=== PATIENT | female | born 1975 | race Caucasian/White ===

== ENCOUNTER 2019-07-26 14:53 | Inpatient (IN) ==
[2019-07-26] MEDS ORDERED: Naloxone 0.4 MG/ML INJ IVP PRN (20:09)
[2019-07-26] MEDS ORDERED: *HR* Dextrose 50 % in Water (Syg) 50 ML SYRINGE IVP PRN (20:20)
[2019-07-26] MEDS ORDERED: D5% in Water 1,000 ML IVC PRN (20:20)
[2019-07-26] MEDS ORDERED: Dextrose Gel 15 GM/37.5 ML TUBE PO PRN ×2 (20:20)
[2019-07-26] MEDS ORDERED: *HR* LORazepam 2 MG/ML VIAL IVP PRN (20:22)
[2019-07-26] MEDS ORDERED: Octreotide 400 MCG in 0.9 % Sodium Chloride 100 ML IVC SCH (20:30)
[2019-07-26 20:46] LABS: Basophils # 0.1 K/mcL (0.0-0.2); Basophils % 0.5 %; Eosinophils # 0.2 K/mcL (0.0-0.6); Hematocrit 28.3 % (35.3-44.9); Hemoglobin 10.2 g/dL (11.5-15.4); Immature Granulocytes % 0.5 % (0-4); Lymphocytes # 2.9 K/mcL (0.6-4.6); Lymphocytes % 28.8 %; Mean Corpuscular Hemoglobin 32.3 pg (28.0-33.3); Mean Platelet Volume 12.4 fL (9.4-12.4); Monocytes % 10.4 %; Neutrophils # 5.8 K/mcL (1.6-8.9); Platelet Count 117 K/mcL (140-400); Red Blood Count 3.16 M/mcL (3.82-4.97); Red Cell Distribution Width 14.6 % (11.5-14.5); Segmented Neutrophils % 57.8 %
[2019-07-26 20:52] LABS: INR 1.2; Prothrombin Time 13.2 Seconds (9.4-12.1)
[2019-07-26 20:54] LABS: Mean Corpuscular Volume 89.6 fL (83.0-100.0)
[2019-07-26] MEDS ORDERED: cefTRIAXone 1,000 MG in Water for inj. (sterile) 10 ML IVP SCH (21:00)
[2019-07-26 21:08] LABS: Alanine Aminotransferase 39 Units/L (7-52); Albumin 2.7 g/dL (3.5-5.7); Albumin/Globulin Ratio 1.1 (1.1-2.2); Alkaline Phosphatase 118 Units/L (34-104); Aspartate Amino Transferase 42 Units/L (13-39); BUN/Creatinine Ratio 24 (6-26); Bilirubin,Total 0.6 mg/dL (0.3-1.0); Blood Urea Nitrogen 28 mg/dL (6-20); Carbon Dioxide 19 mEq/L (23-29); Chloride 107 mEq/L (98-107); Globulin 2.4 g/dL (2.4-3.5); Glucose 249 mg/dL (70-105); Magnesium 1.8 mg/dL (1.6-2.6); Osmolality,Calculated 292 (280-300); Potassium 3.1 mEq/L (3.5-5.1); Sodium 134 mEq/L (136-145); Total Protein 5.1 g/dL (6.4-8.9); Troponin I 0.03 ng/mL (< 0.04); eGFR For African Americans > 60 (> 60); eGFR For Non-African Americans 51 (> 60)
[2019-07-26 21:29] LABS: Estimated Average Glucose 163 mg/dl
[2019-07-26] MEDS ORDERED: Sucralfate 1 GM TABLET PO SCH (22:00)
[2019-07-26] MEDS ORDERED: Potassium Chloride Elixir 20 MEQ/15 ML UDC PO ONE (22:04)
[2019-07-26] MEDS ORDERED: 0.9 % Sodium Chloride 500 ML ONE (23:00)
[2019-07-26] MEDS: Pantoprazole 40 MG VIAL IVP SCH (23:03)
[2019-07-27] MEDS: Insulin LISPRO 300 UNITS/3 ML VIAL SQ SCH ×5 (00:47→23:57)
[2019-07-27] MEDS ORDERED: Pantoprazole 40 MG VIAL IVP SCH (06:00)
[2019-07-27] MEDS ORDERED: 0.45 % Sodium Chloride w/KCl 20 MEQ/1,000 ML MLS IVC SCH (07:00)
[2019-07-27 07:08] LABS: Basophils # 0.1 K/mcL (0.0-0.2); Basophils % 0.8 %; Eosinophils # 0.2 K/mcL (0.0-0.6); Eosinophils % 2.5 %; Hemoglobin 10.2 g/dL (11.5-15.4); Immature Granulocytes % 0.4 % (0-4); Lymphocytes # 1.8 K/mcL (0.6-4.6); Lymphocytes % 24.3 %; Mean Corpuscular Hemoglobin 31.6 pg (28.0-33.3); Mean Corpuscular Volume 92.9 fL (83.0-100.0); Mean Platelet Volume 12.2 fL (9.4-12.4); Monocytes # 0.8 K/mcL (0.0-1.3); Monocytes % 10.2 %; Neutrophils # 4.5 K/mcL (1.6-8.9); Platelet Count 104 K/mcL (140-400); Red Blood Count 3.23 M/mcL (3.82-4.97); Red Cell Distribution Width 15.8 % (11.5-14.5); Segmented Neutrophils % 61.8 %; White Blood Count 7.3 K/mcL (4.3-11.1)
[2019-07-27 07:16] LABS: INR 1.1; Prothrombin Time 12.9 Seconds (9.4-12.1)
[2019-07-27 07:26] LABS: Alanine Aminotransferase 46 Units/L (7-52); Albumin 2.9 g/dL (3.5-5.7); Albumin/Globulin Ratio 1.2 (1.1-2.2); Alkaline Phosphatase 122 Units/L (34-104); Aspartate Amino Transferase 64 Units/L (13-39); BUN/Creatinine Ratio 22 (6-26); Bilirubin,Total 0.8 mg/dL (0.3-1.0); Blood Urea Nitrogen 23 mg/dL (6-20); Calcium 8.2 mg/dL (8.6-10.3); Carbon Dioxide 23 mEq/L (23-29); Chloride 108 mEq/L (98-107); Globulin 2.4 g/dL (2.4-3.5); Glucose 133 mg/dL (70-105); Osmolality,Calculated 294 (280-300); Potassium 3.9 mEq/L (3.5-5.1); Sodium 139 mEq/L (136-145); Total Protein 5.3 g/dL (6.4-8.9); eGFR For African Americans > 60 (> 60); eGFR For Non-African Americans 58 (> 60)
[2019-07-27] MEDS: Pantoprazole 40 MG VIAL IVP SCH (08:03)
[2019-07-27] MEDS ORDERED: cefTRIAXone 1,000 MG in Water for inj. (sterile) 10 ML IVP SCH (09:00)
[2019-07-27] MEDS ORDERED: *HR* OxyCODONE/APAP 10/325 TABLET PO PRN (10:48)
[2019-07-27] MEDS ORDERED: Lidocaine -MPF 2% 2 ML VIAL ONE (11:35)
[2019-07-27] MEDS ORDERED: Propofol 500 MG/50 ML INFUS..BTL ONE (11:35)
[2019-07-27] MEDS ORDERED: *HR* Metoprolol 5 MG/5 ML VIAL IVP ONE (12:17)
[2019-07-27] MEDS: Sucralfate 1 GM TABLET PO SCH ×2 (16:55→20:12)
[2019-07-27] MEDS: Ringers Solution, Lactated 1,000 ML IVC SCH (16:57)
[2019-07-28] MEDS: Ringers Solution, Lactated 1,000 ML IVC SCH (05:10)
[2019-07-28] MEDS: Sucralfate 1 GM TABLET PO SCH (05:18)
[2019-07-28 05:44] LABS: Mean Platelet Volume 12.5 fL (9.4-12.4)
[2019-07-28 05:46] LABS: Hematocrit 28.4 % (35.3-44.9); Immature Platelets 7.8 % (1.1-6.1); Mean Corpuscular HGB Conc 35.2 g/dL (31.6-35.5); Mean Corpuscular Hemoglobin 32.1 pg (28.0-33.3); Red Blood Count 3.12 M/mcL (3.82-4.97); Red Cell Distribution Width 15.9 % (11.5-14.5); White Blood Count 5.5 K/mcL (4.3-11.1)
[2019-07-28 05:58] LABS: BUN/Creatinine Ratio 22 (6-26); Blood Urea Nitrogen 18 mg/dL (6-20); Calcium 7.7 mg/dL (8.6-10.3); Carbon Dioxide 24 mEq/L (23-29); Chloride 104 mEq/L (98-107); Glucose 294 mg/dL (70-105); Osmolality,Calculated 289 (280-300); Sodium 133 mEq/L (136-145); eGFR For African Americans > 60 (> 60); eGFR For Non-African Americans > 60 (> 60)
[2019-07-28] MEDS: Insulin LISPRO 300 UNITS/3 ML VIAL SQ SCH (06:00)
[2019-07-28 06:54] VITALS: BP 121/85
== END 2019-07-28 09:25 | disposition home or self-care (01) ==
LOC: 2NENU → 2NNU 19:06 → SUATTDRO 20:44 → 3ANU 07-27 11:56
PROVIDERS: ADMIT Student in an Organized Health Care Education/Training Program; ATTEND Internal Medicine

== ENCOUNTER 2022-01-30 17:11 | Inpatient (IN) ==
[2022-01-30] MEDS ORDERED: *HR* Succinylcholine 200 MG/10 ML VIAL IVP ONE (18:42)
[2022-01-30] MEDS ORDERED: Ondansetron 4 MG/2 ML VIAL ONE (18:42)
[2022-01-30] MEDS ORDERED: *HR* Propofol 200 MG/20 ML VIAL IVP ONE (18:42)
[2022-01-30] MEDS ORDERED: Lidocaine -MPF 2% 2 ML VIAL ONE (18:42)
[2022-01-30] MEDS ORDERED: *HR* FentaNYL (PF) 100 MCG/2 ML VIAL ONE ×2 (18:42→19:42)
[2022-01-30] MEDS ORDERED: Insulin Regular, Human 100 UNIT/ML ONE (18:53)
[2022-01-30] MEDS ORDERED: Naloxone 0.4 MG/ML INJ IVP PRN (19:53)
[2022-01-30] MEDS: cefTRIAXone 1,000 MG in 0.9 % Sodium Chloride 10 ML IVPB SCH (20:43)
[2022-01-30] MEDS: Pantoprazole 40 MG in 0.9 % Sodium Chloride Mini Bag 100 ML IVC SCH (20:44)
[2022-01-30] MEDS: Octreotide 400 MCG in 0.9 % Sodium Chloride 100 ML IVC SCH (20:45)
[2022-01-30] MEDS ORDERED: Dextrose 4 GM Chewable Tablets PO PRN ×2 (21:16)
[2022-01-30] MEDS ORDERED: D5% in Water 1,000 ML IVC PRN (21:16)
[2022-01-30] MEDS ORDERED: *HR* Dextrose 50 % in Water (Syg) 50 ML SYRINGE IVP PRN (21:16)
[2022-01-30] MEDS: Morphine Sulfate 2 MG/ML SYRINGE IVP PRN (23:28)
[2022-01-30] MEDS: Insulin LISPRO 300 UNITS/3 ML VIAL SUBQ SCH (23:37)
[2022-01-31 00:24] LABS: Hematocrit 35.5 % (35.3-44.9); Hemoglobin 12.4 g/dL (11.5-15.4); Mean Corpuscular HGB Conc 34.9 g/dL (31.6-35.5); Mean Corpuscular Volume 94.4 fL (83.0-100.0); Mean Platelet Volume 13.4 fL (9.4-12.4); Platelet Count 99 K/mcL (140-400); Red Blood Count 3.76 M/mcL (3.82-4.97); Red Cell Distribution Width 14.2 % (11.5-14.5); White Blood Count 15.7 K/mcL (4.3-11.1)
[2022-01-31 00:25] LABS: Basophils # 0.1 K/mcL (0.0-0.2); Basophils % 0.4 %; Lymphocytes # 1.8 K/mcL (0.6-4.6); Lymphocytes % 11.3 %; Monocytes # 0.3 K/mcL (0.0-1.3); Neutrophils # 13.4 K/mcL (1.6-8.9); Platelet Estimate Decreased (Normal); Segmented Neutrophils % 85.6 %
[2022-01-31] MEDS: Pantoprazole 40 MG in 0.9 % Sodium Chloride Mini Bag 100 ML IVC SCH ×6 (01:02→21:42)
[2022-01-31] MEDS: Octreotide 400 MCG in 0.9 % Sodium Chloride 100 ML IVC SCH ×3 (07:39→21:43)
[2022-01-31] MEDS: cefTRIAXone 1,000 MG in 0.9 % Sodium Chloride 10 ML IVPB SCH (07:40)
[2022-01-31] MEDS: Insulin LISPRO 300 UNITS/3 ML VIAL SUBQ SCH ×5 (07:41→21:40)
[2022-01-31] MEDS: Morphine Sulfate 2 MG/ML SYRINGE IVP PRN ×3 (07:44→23:07)
[2022-01-31] MEDS: Ondansetron 4 MG/2 ML VIAL IVP PRN (15:00)
[2022-01-31] MEDS: Insulin DETEMIR 100 UNIT/ML X5UNITS SUBQ SCH (21:40)
[2022-02-01] MEDS: Pantoprazole 40 MG in 0.9 % Sodium Chloride Mini Bag 100 ML IVC SCH ×4 (03:01→21:52)
[2022-02-01] MEDS: Octreotide 400 MCG in 0.9 % Sodium Chloride 100 ML IVC SCH ×2 (03:11→14:03)
[2022-02-01] MEDS: Morphine Sulfate 2 MG/ML SYRINGE IVP PRN ×3 (03:34→22:00)
[2022-02-01 06:10] LABS: Basophils # 0.1 K/mcL (0.0-0.2); Basophils % 0.5 %; Eosinophils # 0.1 K/mcL (0.0-0.6); Eosinophils % 0.8 %; Hematocrit 24.8 % (35.3-44.9); Immature Granulocytes % 0.5 % (0-4); Lymphocytes # 2.2 K/mcL (0.6-4.6); Lymphocytes % 20.5 %; Mean Corpuscular HGB Conc 34.3 g/dL (31.6-35.5); Mean Corpuscular Hemoglobin 32.6 pg (28.0-33.3); Mean Platelet Volume 12.5 fL (9.4-12.4); Monocytes # 0.8 K/mcL (0.0-1.3); Monocytes % 7.8 %; Neutrophils # 7.4 K/mcL (1.6-8.9); Red Blood Count 2.61 M/mcL (3.82-4.97); Red Cell Distribution Width 14.6 % (11.5-14.5); Segmented Neutrophils % 69.9 %; White Blood Count 10.6 K/mcL (4.3-11.1)
[2022-02-01 06:11] LABS: Hemoglobin 8.5 g/dL (11.5-15.4); Platelet Count 74 K/mcL (140-400)
[2022-02-01 06:12] LABS: INR 1.2; Prothrombin Time 13.9 Seconds (9.4-12.1)
[2022-02-01 08:03] LABS: BUN/Creatinine Ratio 38 (6-26); Blood Urea Nitrogen 25 mg/dL (6-20); Calcium 7.7 mg/dL (8.6-10.3); Carbon Dioxide 24 mEq/L (23-29); Chloride 106 mEq/L (98-107); Glucose 203 mg/dL (70-105); Osmolality,Calculated 292 (280-300); Potassium 3.9 mEq/L (3.5-5.1); Sodium 136 mEq/L (136-145); eGFR For African Americans > 60 (> 60); eGFR For Non-African Americans > 60 (> 60)
[2022-02-01] MEDS: cefTRIAXone 1,000 MG in 0.9 % Sodium Chloride 10 ML IVPB SCH (08:21)
[2022-02-01] MEDS: Insulin LISPRO 300 UNITS/3 ML VIAL SUBQ SCH ×4 (08:22→21:32)
[2022-02-01] MEDS: Divalproex (12 HR) 250 MG TABLET PO SCH (20:42)
[2022-02-01] MEDS: Insulin DETEMIR 100 UNIT/ML X5UNITS SUBQ SCH (20:43)
[2022-02-02] MEDS: Octreotide 400 MCG in 0.9 % Sodium Chloride 100 ML IVC SCH ×3 (02:07→21:44)
[2022-02-02] MEDS: Pantoprazole 40 MG in 0.9 % Sodium Chloride Mini Bag 100 ML IVC SCH ×4 (02:59→19:02)
[2022-02-02 06:10] LABS: Hemoglobin 8.1 g/dL (11.5-15.4); Mean Corpuscular Hemoglobin 33.1 pg (28.0-33.3); Red Blood Count 2.45 M/mcL (3.82-4.97)
[2022-02-02 06:11] LABS: Basophils % 0.5 %; Eosinophils # 0.1 K/mcL (0.0-0.6); Eosinophils % 1.5 %; Hematocrit 23.3 % (35.3-44.9); Immature Granulocytes % 0.3 % (0-4); Immature Platelets 8.2 % (1.1-6.1); Lymphocytes # 1.4 K/mcL (0.6-4.6); Lymphocytes % 23.1 %; Mean Corpuscular HGB Conc 34.8 g/dL (31.6-35.5); Mean Corpuscular Volume 95.1 fL (83.0-100.0); Mean Platelet Volume 12.7 fL (9.4-12.4); Monocytes # 0.6 K/mcL (0.0-1.3); Monocytes % 9.3 %; Nucleated Red Blood Cells 0.3 /100 WBC (0); Red Cell Distribution Width 14.5 % (11.5-14.5); Segmented Neutrophils % 65.3 %; White Blood Count 5.9 K/mcL (4.3-11.1)
[2022-02-02 06:12] LABS: Neutrophils # 3.9 K/mcL (1.6-8.9); Platelet Count 61 K/mcL (140-400)
[2022-02-02 06:31] LABS: BUN/Creatinine Ratio 25 (6-26); Blood Urea Nitrogen 16 mg/dL (6-20); Calcium 7.6 mg/dL (8.6-10.3); Carbon Dioxide 25 mEq/L (23-29); Chloride 106 mEq/L (98-107); Glucose 248 mg/dL (70-105); Osmolality,Calculated 289 (280-300); Potassium 3.8 mEq/L (3.5-5.1); Sodium 135 mEq/L (136-145); eGFR For African Americans > 60 (> 60); eGFR For Non-African Americans > 60 (> 60)
[2022-02-02 07:18] LABS: Estimated Average Glucose 186 mg/dl; Hemoglobin A1C 8.1 %
[2022-02-02] MEDS: cefTRIAXone 1,000 MG in 0.9 % Sodium Chloride 10 ML IVPB SCH (08:02)
[2022-02-02] MEDS: Divalproex (12 HR) 250 MG TABLET PO SCH ×2 (08:03→20:28)
[2022-02-02] MEDS: Insulin LISPRO 300 UNITS/3 ML VIAL SUBQ SCH ×4 (08:04→20:43)
[2022-02-02] MEDS: Morphine Sulfate 2 MG/ML SYRINGE IVP PRN (09:40)
[2022-02-02] MEDS: Loratadine 10 MG TABLET PO SCH (17:03)
[2022-02-02] MEDS: Ondansetron 4 MG/2 ML VIAL IVP PRN (20:28)
[2022-02-02] MEDS: *HR* OxyCODONE Immed Rel 5 MG TABLET PO PRN (20:40)
[2022-02-02] MEDS: Insulin DETEMIR 100 UNIT/ML X5UNITS SUBQ SCH (20:42)
[2022-02-03] MEDS: Pantoprazole 40 MG in 0.9 % Sodium Chloride Mini Bag 100 ML IVC SCH ×3 (00:44→06:06)
[2022-02-03 02:57] LABS: Basophils % 0.4 %; Red Cell Distribution Width 14.7 % (11.5-14.5)
[2022-02-03 02:59] LABS: Eosinophils # 0.2 K/mcL (0.0-0.6); Eosinophils % 3.2 %; Hematocrit 26.6 % (35.3-44.9); Hemoglobin 9.2 g/dL (11.5-15.4); Immature Granulocytes % 0.7 % (0-4); Immature Platelets 11.9 % (1.1-6.1); Lymphocytes # 1.2 K/mcL (0.6-4.6); Mean Corpuscular HGB Conc 34.6 g/dL (31.6-35.5); Mean Corpuscular Hemoglobin 33.7 pg (28.0-33.3); Mean Corpuscular Volume 97.4 fL (83.0-100.0); Mean Platelet Volume 12.8 fL (9.4-12.4); Monocytes # 0.5 K/mcL (0.0-1.3); Monocytes % 9.3 %; Neutrophils # 3.4 K/mcL (1.6-8.9); Red Blood Count 2.73 M/mcL (3.82-4.97); Segmented Neutrophils % 63.4 %; White Blood Count 5.4 K/mcL (4.3-11.1)
[2022-02-03 03:05] LABS: Platelet Count 74 K/mcL (140-400)
[2022-02-03 03:11] LABS: Albumin 2.9 g/dL (3.5-5.7); Albumin/Globulin Ratio 1.2 (1.1-2.2); BUN/Creatinine Ratio 23 (6-26); Bilirubin,Direct 0.3 mg/dL (0.0-0.2); Bilirubin,Indirect 0.5 mg/dL (0.0-1.0); Bilirubin,Total 0.8 mg/dL (0.3-1.0); Blood Urea Nitrogen 13 mg/dL (6-20); Calcium 7.8 mg/dL (8.6-10.3); Carbon Dioxide 25 mEq/L (23-29); Chloride 107 mEq/L (98-107); Globulin 2.5 g/dL (2.4-3.5); Glucose 175 mg/dL (70-105); Osmolality,Calculated 288 (280-300); Potassium 4.1 mEq/L (3.5-5.1); Sodium 137 mEq/L (136-145); Total Protein 5.4 g/dL (6.4-8.9); eGFR For African Americans > 60 (> 60); eGFR For Non-African Americans > 60 (> 60)
[2022-02-03] MEDS: *HR* OxyCODONE Immed Rel 5 MG TABLET PO PRN (06:07)
[2022-02-03] MEDS: Octreotide 400 MCG in 0.9 % Sodium Chloride 100 ML IVC SCH (06:07)
[2022-02-03 07:22] VITALS: BP 143/84; PULSE 79; TEMP 98.2; O2SAT 99
[2022-02-03] MEDS: Insulin LISPRO 300 UNITS/3 ML VIAL SUBQ SCH (07:33)
[2022-02-03] MEDS: Loratadine 10 MG TABLET PO SCH (09:37)
[2022-02-03] MEDS: Divalproex (12 HR) 250 MG TABLET PO SCH (09:37)
[2022-02-03] MEDS: cefTRIAXone 1,000 MG in 0.9 % Sodium Chloride 10 ML IVPB SCH (09:38)
== END 2022-02-03 11:44 | disposition home or self-care (01) | DRG 242 ==
LOC: ICNU → SUATTDRO 19:59 → 3ANU 01-31 16:13
PROVIDERS: ADMIT Student in an Organized Health Care Education/Training Program; ATTEND Family Medicine

== ENCOUNTER 2022-04-28 21:23 | Inpatient (IN) ==
[2022-04-28 22:09] LABS: Hemoglobin 12.7 g/dL (11.5-15.4); Segmented Neutrophils % 60.9 %
[2022-04-28 22:11] LABS: Basophils # 0.1 K/mcL (0.0-0.2); Basophils % 1.2 %; Eosinophils # 0.1 K/mcL (0.0-0.6); Eosinophils % 1.8 %; Hematocrit 39.3 % (35.3-44.9); Immature Granulocytes % 0.3 % (0-4); Immature Platelets 9.6 % (1.1-6.1); Lymphocytes # 1.4 K/mcL (0.6-4.6); Lymphocytes % 21.6 %; Mean Corpuscular HGB Conc 32.3 g/dL (31.6-35.5); Mean Corpuscular Hemoglobin 26.5 pg (28.0-33.3); Mean Corpuscular Volume 81.9 fL (83.0-100.0); Monocytes # 0.9 K/mcL (0.0-1.3); Monocytes % 14.2 %; Platelet Count 153 K/mcL (140-400); Red Cell Distribution Width 24.9 % (11.5-14.5); White Blood Count 6.6 K/mcL (4.3-11.1)
[2022-04-28 22:34] LABS: Albumin 2.8 g/dL (3.5-5.7); Albumin/Globulin Ratio 0.6 (1.1-2.2); Bilirubin,Direct 0.9 mg/dL (0.0-0.2); Bilirubin,Indirect 2.2 mg/dL (0.0-1.0); Bilirubin,Total 3.1 mg/dL (0.3-1.0); Calcium 8.5 mg/dL (8.6-10.3); Globulin 4.5 g/dL (2.4-3.5); Potassium 3.9 mEq/L (3.5-5.1); Total Protein 7.3 g/dL (6.4-8.9)
[2022-04-28 22:51] LABS: Anisocytosis 2+ (Not Present); Platelet Estimate Normal (Normal)
[2022-04-29 01:23] LABS: Bacteria,Urine Few per hpf (None-Few); Bilirubin,Urine Small (Negative); Blood,Urine Negative (Negative); Budding Yeast,Urine Many per hpf (None Seen); Clarity,Urine Ex.Turbid (Clear); Color,Urine Orange (Yellow); Glucose,Urine (UA) >=1000 mg/dL (Normal); Ketones,Urine Trace mg/dL (Negative); Leukocyte Esterase,Urine Trace (Negative); Mucus,Urine Many per lpf (None-Few); Nitrite,Urine Negative (Negative); Protein,Urine 70 mg/dL (Neg-Trace); RBC,Urine TNTC per hpf (0-3); Specific Gravity,Urine > 1.030 (1.010-1.025); Squamous Epithelial Cell,Urine Many per hpf (None-Few); WBC,Urine 50-100 per hpf (0-3)
[2022-04-29] MEDS ORDERED: *HR* HYDROmorphone (PF) 1 MG/ML SYRINGE IVP ONE (03:21)
[2022-04-29] MEDS ORDERED: Iopamidol - 370 500 ML MLS IVP ONE (03:22)
[2022-04-29] MEDS ORDERED: Insulin Human Regular 5 UNIT in 0.9 % Sodium Chloride 10 ML IV ONE (03:26)
[2022-04-29] MEDS ORDERED: 0.9 % Sodium Chloride 1,000 ML IVC ONE (03:27)
[2022-04-29 05:22] LABS: VBG HCO3 22 mEq/L (21-27); VBG PCO2 40 mmHg (41-51); VBG PH 7.35 pH Units (7.32-7.42); VBG PO2 28 mmHg (25-50)
[2022-04-29] MEDS ORDERED: *HR* Heparin 5,000 UNIT/ML VIAL IVP ONE (05:50)
[2022-04-29] MEDS ORDERED: *HR* Heparin 5,000 UNIT/ML VIAL IVP PRN ×2 (05:50)
[2022-04-29] MEDS ORDERED: Heparin 25,000UNIT/250ML 1/2NS 25,000 UNIT/250 ML IV.SOLN IVC SCH (06:00)
[2022-04-29] MEDS ORDERED: Naloxone 0.4 MG/ML INJ IVP PRN (06:36)
[2022-04-29] MEDS ORDERED: D5% in Water 1,000 ML IVC PRN (06:53)
[2022-04-29] MEDS ORDERED: Dextrose Gel 15 GM/37.5 ML TUBE PO PRN ×2 (06:53)
[2022-04-29] MEDS ORDERED: *HR* Dextrose 50 % in Water (Syg) 50 ML SYRINGE IVP PRN (06:53)
[2022-04-29] MEDS ORDERED: Octreotide 400 MCG in 0.9 % Sodium Chloride 100 ML IVC SCH (07:15)
[2022-04-29] MEDS: Pantoprazole 40 MG VIAL IVP SCH ×2 (07:36→18:02)
[2022-04-29] MEDS: cefTRIAXone 1,000 MG in Water for inj. (sterile) 10 ML IVP SCH (07:36)
[2022-04-29 08:09] LABS: Mean Corpuscular Volume 82.1 fL (83.0-100.0)
[2022-04-29 08:10] LABS: Hematocrit 37.6 % (35.3-44.9); Hemoglobin 12.4 g/dL (11.5-15.4); Immature Platelets 8.3 % (1.1-6.1); Mean Corpuscular Hemoglobin 27.1 pg (28.0-33.3); Platelet Count 164 K/mcL (140-400); Red Blood Count 4.58 M/mcL (3.82-4.97); Red Cell Distribution Width 24.5 % (11.5-14.5); White Blood Count 7.8 K/mcL (4.3-11.1)
[2022-04-29 08:22] LABS: Heparin anti-factor XA UFH 0.73 IU/mL (0.30-0.70); INR 1.5; Prothrombin Time 16.8 Seconds (9.4-12.1)
[2022-04-29 08:27] LABS: Albumin 2.7 g/dL (3.5-5.7)
[2022-04-29 08:47] LABS: Acetaminophen < 10 mcg/mL (10-20)
[2022-04-29] MEDS: Insulin LISPRO 300 UNITS/3 ML VIAL SUBQ SCH ×4 (08:57→22:28)
[2022-04-29] MEDS: Furosemide 40 MG TABLET PO SCH (11:49)
[2022-04-29 11:58] LABS: Albumin 2.6 g/dL (3.5-5.7); Albumin/Globulin Ratio 0.6 (1.1-2.2); Bilirubin,Direct 0.9 mg/dL (0.0-0.2); Bilirubin,Indirect 1.8 mg/dL (0.0-1.0); Bilirubin,Total 2.7 mg/dL (0.3-1.0); Globulin 4.3 g/dL (2.4-3.5); Total Protein 6.9 g/dL (6.4-8.9)
[2022-04-29 19:05] LABS: Heparin anti-factor XA UFH < 0.04 IU/mL (0.30-0.70); INR 1.3; Prothrombin Time 14.7 Seconds (9.4-12.1)
[2022-04-29 19:08] LABS: Activated Partial Thrombo Time 32.4 Seconds (26.0-36.0)
[2022-04-30 03:18] LABS: Mean Corpuscular HGB Conc 32.4 g/dL (31.6-35.5); Mean Corpuscular Hemoglobin 26.6 pg (28.0-33.3); Red Blood Count 4.14 M/mcL (3.82-4.97); Segmented Neutrophils % 59.1 %
[2022-04-30 03:20] LABS: Basophils # 0.1 K/mcL (0.0-0.2); Eosinophils # 0.2 K/mcL (0.0-0.6); Eosinophils % 2.6 %; Hematocrit 33.9 % (35.3-44.9); Immature Granulocytes % 0.3 % (0-4); Immature Platelets 8.2 % (1.1-6.1); Lymphocytes # 1.3 K/mcL (0.6-4.6); Mean Corpuscular Volume 81.9 fL (83.0-100.0); Neutrophils # 3.7 K/mcL (1.6-8.9); Platelet Count 137 K/mcL (140-400); Red Cell Distribution Width 24.7 % (11.5-14.5); White Blood Count 6.2 K/mcL (4.3-11.1)
[2022-04-30] MEDS: Heparin 25,000UNIT/250ML 1/2NS 25,000 UNIT/250 ML IV.SOLN IVC SCH (03:24)
[2022-04-30 03:35] LABS: Calcium 7.9 mg/dL (8.6-10.3); Potassium 4.1 mEq/L (3.5-5.1)
[2022-04-30 04:09] LABS: Anisocytosis 2+ (Not Present); Hypochromasia Present (Not Present)
[2022-04-30 04:10] LABS: Platelet Estimate Slight Decrease (Normal); Target Cells 1+ (Not Present)
[2022-04-30] MEDS: cefTRIAXone 1,000 MG in Water for inj. (sterile) 10 ML IVP SCH (06:00)
[2022-04-30] MEDS: Pantoprazole 40 MG VIAL IVP SCH ×2 (06:01→17:37)
[2022-04-30] MEDS: Insulin LISPRO 300 UNITS/3 ML VIAL SUBQ SCH ×4 (09:40→21:22)
[2022-04-30] MEDS: Furosemide 40 MG TABLET PO SCH (09:40)
[2022-04-30] MEDS: *HR* HYDROcodone/Acet 5/325 mg TABLET PO PRN ×2 (13:52→21:33)
[2022-04-30] MEDS ORDERED: Albumin 25% 25gram/100mL 25 GM/100 ML IV.SOLN IVPB ONE (16:43)
[2022-04-30 17:55] LABS: RBC,Peritoneal Fluid < 2000 RBC/mcL
[2022-04-30 18:06] LABS: Glucose,Peritoneal Fluid 290 mg/dL (No Ref Range); LDH,Peritoneal Fluid 33 Units/L (No Ref Range); Total Protein,Peritoneal Fluid < 2.0 g/dL
[2022-04-30 18:48] LABS: Appearance of Peritoneal Fl HAZY (Clear)
[2022-04-30 19:02] LABS: Basophils,Peritoneal Fluid 0 %; Eosinophils,Peritoneal Fluid 0 %
[2022-05-01] MEDS: Heparin 25,000UNIT/250ML 1/2NS 25,000 UNIT/250 ML IV.SOLN IVC SCH ×2 (02:39→18:56)
[2022-05-01 03:46] LABS: Basophils % 0.6 %; Eosinophils # 0.1 K/mcL (0.0-0.6); Eosinophils % 2.6 %; Hematocrit 30.4 % (35.3-44.9); Hemoglobin 9.9 g/dL (11.5-15.4); Immature Granulocytes % 0.2 % (0-4); Immature Platelets 6.9 % (1.1-6.1); Lymphocytes # 1.1 K/mcL (0.6-4.6); Lymphocytes % 21.2 %; Mean Corpuscular HGB Conc 32.6 g/dL (31.6-35.5); Mean Corpuscular Hemoglobin 27.2 pg (28.0-33.3); Mean Corpuscular Volume 83.5 fL (83.0-100.0); Monocytes # 0.6 K/mcL (0.0-1.3); Monocytes % 12.4 %; Neutrophils # 3.2 K/mcL (1.6-8.9); Red Blood Count 3.64 M/mcL (3.82-4.97); Red Cell Distribution Width 24.2 % (11.5-14.5); White Blood Count 5.1 K/mcL (4.3-11.1)
[2022-05-01 04:03] LABS: Calcium 7.6 mg/dL (8.6-10.3); Potassium 3.6 mEq/L (3.5-5.1)
[2022-05-01 04:04] LABS: Platelet Count 97 K/mcL (140-400); Platelet Estimate Slight Decrease (Normal)
[2022-05-01 04:05] LABS: Anisocytosis 2+ (Not Present); Microcytosis Present (Not Present); Poikilocytosis 1+ (Not Present); Target Cells 1+ (Not Present)
[2022-05-01] MEDS: Pantoprazole 40 MG VIAL IVP SCH ×2 (05:43→16:52)
[2022-05-01] MEDS: cefTRIAXone 1,000 MG in Water for inj. (sterile) 10 ML IVP SCH (05:47)
[2022-05-01] MEDS: *HR* HYDROcodone/Acet 5/325 mg TABLET PO PRN ×3 (05:56→23:06)
[2022-05-01] MEDS: Insulin LISPRO 300 UNITS/3 ML VIAL SUBQ SCH ×4 (08:12→23:07)
[2022-05-01] MEDS: Furosemide 20 MG/2 ML VIAL IVP SCH (10:30)
[2022-05-02] MEDS: Pantoprazole 40 MG VIAL IVP SCH (05:07)
[2022-05-02] MEDS: cefTRIAXone 1,000 MG in Water for inj. (sterile) 10 ML IVP SCH (05:41)
[2022-05-02] MEDS: *HR* HYDROcodone/Acet 5/325 mg TABLET PO PRN ×2 (05:42→12:46)
[2022-05-02 05:52] LABS: Basophils % 0.7 %; Immature Granulocytes % 0.2 % (0-4); Red Blood Count 3.71 M/mcL (3.82-4.97); Red Cell Distribution Width 23.9 % (11.5-14.5)
[2022-05-02 05:54] LABS: Eosinophils # 0.1 K/mcL (0.0-0.6); Eosinophils % 2.3 %; Hematocrit 29.9 % (35.3-44.9); Hemoglobin 10.2 g/dL (11.5-15.4); Lymphocytes # 1.4 K/mcL (0.6-4.6); Lymphocytes % 31.6 %; Mean Corpuscular HGB Conc 34.1 g/dL (31.6-35.5); Mean Corpuscular Hemoglobin 27.5 pg (28.0-33.3); Mean Corpuscular Volume 80.6 fL (83.0-100.0); Monocytes # 0.6 K/mcL (0.0-1.3); Monocytes % 14.1 %; Neutrophils # 2.2 K/mcL (1.6-8.9); Platelet Count 97 K/mcL (140-400); Segmented Neutrophils % 51.1 %; White Blood Count 4.3 K/mcL (4.3-11.1)
[2022-05-02 05:58] LABS: Heparin anti-factor XA UFH 0.56 IU/mL (0.30-0.70); INR 1.5; Prothrombin Time 16.6 Seconds (9.4-12.1)
[2022-05-02 06:29] LABS: BUN/Creatinine Ratio 27 (6-26); Blood Urea Nitrogen 22 mg/dL (6-20); Calcium 7.6 mg/dL (8.6-10.3); Carbon Dioxide 23 mEq/L (23-29); Chloride 104 mEq/L (98-107); Glucose 211 mg/dL (70-105); Osmolality,Calculated 288 (280-300); Potassium 3.3 mEq/L (3.5-5.1); Sodium 134 mEq/L (136-145)
[2022-05-02 06:45] LABS: Anisocytosis 3+ (Not Present); Hypochromasia Present (Not Present)
[2022-05-02 06:46] LABS: Platelet Estimate Decreased (Normal); Target Cells 1+ (Not Present)
[2022-05-02] MEDS: Insulin LISPRO 300 UNITS/3 ML VIAL SUBQ SCH ×4 (08:34→21:19)
[2022-05-02] MEDS: Furosemide 20 MG/2 ML VIAL IVP SCH (08:35)
[2022-05-02 13:15] LABS: Heparin anti-factor XA UFH < 0.04 IU/mL (0.30-0.70)
[2022-05-02 13:17] LABS: Activated Partial Thrombo Time 33.4 Seconds (26.0-36.0)
[2022-05-02] MEDS ORDERED: *HR* OxyCODONE Immed Rel 5 MG TABLET PO PRN (15:18)
[2022-05-02 17:40] LABS: Fluid Source for Albumin PERITONEAL
[2022-05-02] MEDS: Ondansetron 4 MG/2 ML VIAL IVP PRN (18:00)
[2022-05-02] MEDS: Heparin 25,000UNIT/250ML 1/2NS 25,000 UNIT/250 ML IV.SOLN IVC SCH (22:43)
[2022-05-03] MEDS: *HR* OxyCODONE Immed Rel 5 MG TABLET PO PRN ×3 (00:09→20:07)
[2022-05-03] MEDS: cefTRIAXone 1,000 MG in Water for inj. (sterile) 10 ML IVP SCH (06:01)
[2022-05-03 06:41] LABS: Eosinophils % 1.8 %; Immature Granulocytes % 0.2 % (0-4)
[2022-05-03 06:43] LABS: Basophils % 0.8 %; Eosinophils # 0.1 K/mcL (0.0-0.6); Hemoglobin 10.3 g/dL (11.5-15.4); Immature Platelets 7.8 % (1.1-6.1); Lymphocytes # 1.3 K/mcL (0.6-4.6); Lymphocytes % 25.4 %; Mean Corpuscular HGB Conc 33.2 g/dL (31.6-35.5); Mean Corpuscular Volume 81.2 fL (83.0-100.0); Monocytes % 14.9 %; Platelet Count 103 K/mcL (140-400); Red Blood Count 3.82 M/mcL (3.82-4.97); Red Cell Distribution Width 24.2 % (11.5-14.5); Segmented Neutrophils % 56.9 %
[2022-05-03 06:57] LABS: Monocytes # 0.8 K/mcL (0.0-1.3); Neutrophils # 2.9 K/mcL (1.6-8.9)
[2022-05-03 06:58] LABS: Calcium 7.6 mg/dL (8.6-10.3); Potassium 3.6 mEq/L (3.5-5.1)
[2022-05-03 07:47] LABS: Anisocytosis 1+ (Not Present); Platelet Estimate Decreased (Normal)
[2022-05-03] MEDS: Furosemide 20 MG/2 ML VIAL IVP SCH (08:39)
[2022-05-03] MEDS: Ondansetron 4 MG/2 ML VIAL IVP PRN (08:39)
[2022-05-03] MEDS: Insulin LISPRO 300 UNITS/3 ML VIAL SUBQ SCH ×4 (08:50→21:43)
[2022-05-03 12:06] LABS: Heparin anti-factor XA UFH 0.57 IU/mL (0.30-0.70); INR 1.4; Prothrombin Time 15.3 Seconds (9.4-12.1)
[2022-05-03] MEDS ORDERED: Albumin 25% 25gram/100mL 25 GM/100 ML IV.SOLN IVPB ONE (16:22)
[2022-05-03] MEDS: levETIRAcetam 250 MG TABLET PO SCH (17:15)
[2022-05-03] MEDS: Heparin 25,000UNIT/250ML 1/2NS 25,000 UNIT/250 ML IV.SOLN IVC SCH ×2 (17:17→22:19)
[2022-05-03] MEDS ORDERED: Insulin DETEMIR 100 UNIT/ML X5UNITS SUBQ SCH (21:00)
[2022-05-04] MEDS: *HR* OxyCODONE Immed Rel 5 MG TABLET PO PRN (02:46)
[2022-05-04 04:31] LABS: Heparin anti-factor XA UFH 0.52 IU/mL (0.30-0.70); INR 1.4
[2022-05-04 04:57] LABS: Hemoglobin 9.1 g/dL (11.5-15.4); Mean Corpuscular Hemoglobin 26.8 pg (28.0-33.3)
[2022-05-04 04:59] LABS: Hematocrit 27.3 % (35.3-44.9); Immature Platelets 8.1 % (1.1-6.1); Mean Corpuscular HGB Conc 33.3 g/dL (31.6-35.5); Mean Corpuscular Volume 80.3 fL (83.0-100.0); White Blood Count 3.9 K/mcL (4.3-11.1)
[2022-05-04 05:01] LABS: Activated Partial Thrombo Time > 360.0 Seconds (26.0-36.0)
[2022-05-04 05:08] LABS: Platelet Count 74 K/mcL (140-400)
[2022-05-04] MEDS: levETIRAcetam 250 MG TABLET PO SCH (06:17)
[2022-05-04] MEDS: cefTRIAXone 1,000 MG in Water for inj. (sterile) 10 ML IVP SCH (06:18)
[2022-05-04 07:18] VITALS: BP 119/48; PULSE 91; TEMP 98; O2SAT 100
[2022-05-04] MEDS: Furosemide 20 MG/2 ML VIAL IVP SCH (08:10)
[2022-05-04] MEDS: Insulin LISPRO 300 UNITS/3 ML VIAL SUBQ SCH (08:10)
== END 2022-05-04 08:56 | disposition short-term general hospital (02) | DRG 279 ==
LOC: 2NENU 21:23 → EMEROOARM 21:23 → SUATTDRO 04-29 06:06 → 2NENU 04-29 06:48
PROVIDERS: ADMIT Student in an Organized Health Care Education/Training Program; ATTEND Internal Medicine